=== PATIENT | male | born 1985 | race Caucasian/White ===

== ENCOUNTER 2017-11-09 00:05 | Emergency (ER) | payer MEDICAID, OTHER ==
--- NOTE | 2017-11-09 00:49 | XRAY Report ---
EXAM: LEFT WRIST RADIOGRAPHY EXAM DATE: 11/09/2017 12:37 AM. CLINICAL HISTORY: Left wrist injury. COMPARISON: None. TECHNIQUE: 3 views. FINDINGS: Bones: Subacute appearing healing nondisplaced fracture through the base of the left radial styloid. No acute fracture seen in the left breast. Joints: Normal. No subluxations. Soft Tissues: Normal. No soft tissue swelling. IMPRESSION: Subacute appearing healing nondisplaced intra-articular fracture through the base of the left radial styloid. No acute fracture seen in the left wrist. [facility] Referring Provider Line: [phone] SITE ID: [id number]
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
[2017-11-09 01:03] VITALS: BP 164/104
== END 2017-11-09 01:07 | disposition home or self-care (01) ==
LOC: ED 00:05
DX: S69.92XA Unspecified injury of left wrist, hand and finger(s), initial encounter (principal); Y35.811A Legal intervention involving manhandling, law enforcement official injured, initial encounter; Y93.02 Activity, running; F17.200 Nicotine dependence, unspecified, uncomplicated
CPT/HCPCS: 99282; 99283

== ENCOUNTER 2020-02-29 15:50 | Outpatient (CLI) | payer MEDICAID | END 2020-02-29 15:51 | disposition home or self-care (01) | LOC: EMS 15:50 | PROVIDERS: ATTEND Surgery | DX: Z53.9 Procedure and treatment not carried out, unspecified reason (principal) ==

== ENCOUNTER 2020-02-29 16:04 | Outpatient (CLI) | payer MEDICAID | END 2020-02-29 16:05 | disposition critical access hospital (66) | LOC: EMS 16:04 | PROVIDERS: ATTEND Surgery | DX: M79.602 Pain in left arm (principal); M79.605 Pain in left leg | CPT/HCPCS: A0425; A0429; A0999 ==

== ENCOUNTER 2020-02-29 16:44 | Emergency (ER) | payer MEDICAID ==
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
[2020-02-29] MEDS ORDERED: IOVERSOL 320 100 ML VIAL IVP ONE ×2 (17:06→19:12)
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
[2020-02-29 17:42] LABS: BASOPHILS % (AUTO) 0.3 %; EOSINOPHILS # (AUTO) 0.1 10^3/uL (0.0-0.7); EOSINOPHILS % (AUTO) 0.6 %; HGB - HEMOGLOBIN 14.6 g/dL (14.0-18.0); LYMPHOCYTES # (AUTO) 1.9 10^3/uL (1.5-3.5); LYMPHOCYTES % (AUTO) 16.9 %; MEAN CORPUSCULAR HEMOGLOBIN 29.9 pg (27.0-31.0); MEAN CORPUSCULAR VOLUME 90.6 fL (80.0-94.0); MEAN PLATELET VOLUME 9.4 fL (7.4-11.4); MONOCYTES % (AUTO) 8.6 %; NEUTROPHILS # (AUTO) 8.1 10^3/uL (1.5-6.6); NEUTROPHILS % (AUTO) 73.2 %; PLT - PLATELET COUNT 259 10^3/uL (130-450); RED BLOOD COUNT 4.88 10^6/uL (4.70-6.10); RED CELL DISTRIBUTION WIDTH 13.2 % (12.0-15.0); WHITE BLOOD COUNT 11.1 x10^3/uL (4.8-10.8)
[2020-02-29 18:09] LABS: ALBUMIN 4.1 g/dL (3.2-5.5); ALBUMIN/GLOBULIN RATIO 1.2 (1.0-2.2); ALKALINE PHOSPHATASE 81 IU/L (42-121); ALT ALANINE AMINOTRANSFERASE 39 IU/L (10-60); AST ASPARTATE AMINOTRANSFERASE 30 IU/L (10-42); BILIRUBIN,TOTAL 0.7 mg/dL (0.2-1.0); BUN - BLOOD UREA NITROGEN 16 mg/dL (6-20); CALCIUM 9.1 mg/dL (8.5-10.3); CARBON DIOXIDE - CO2 26 mmol/L (21-32); CHLORIDE 103 mmol/L (101-111); GLUCOSE 86 mg/dL (70-100); LIPASE 23 U/L (22-51); SODIUM 137 mmol/L (135-145); TOTAL PROTEIN 7.6 g/dL (6.7-8.2)
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
[2020-02-29 18:54] VITALS: BP 140/88
== END 2020-02-29 18:56 | disposition home or self-care (01) ==
LOC: EDUNIT# → ED 16:44
DX: S09.90XA Unspecified injury of head, initial encounter (principal); S16.1XXA Strain of muscle, fascia and tendon at neck level, initial encounter; S40.022A Contusion of left upper arm, initial encounter; S80.12XA Contusion of left lower leg, initial encounter; S80.812A Abrasion, left lower leg, initial encounter; V48.5XXA Car driver injured in noncollision transport accident in traffic accident, initial encounter; Y92.410 Unspecified street and highway as the place of occurrence of the external cause; F17.200 Nicotine dependence, unspecified, uncomplicated
CPT/HCPCS: 36415; 70450; 71260; 72125; 73060; 73590; 74177; 80053; 80320; 83690; 85025; 99283; 99284; Q9967

== ENCOUNTER 2021-05-12 14:50 | Outpatient (CLI) | payer MEDICAID | END 2021-05-12 14:51 | disposition critical access hospital (66) | LOC: EMS 14:50 | DX: K08.89 Other specified disorders of teeth and supporting structures (principal) | CPT/HCPCS: A0425; A0429 ==

== ENCOUNTER 2021-05-12 15:10 | Emergency (ER) | payer MEDICAID ==
[2021-05-12] MEDS ORDERED: AMOXICILLIN 250 MG CAPSULE PO STA (16:55)
--- NOTE | 2021-05-12 17:00 | ED Physician Documentation ---
PD HPI HEENT - Stated complaint Stated Complaint: TOOTH PX - Chief complaint Chief Complaint: Heent - History obtained from History obtained from: Patient - Additional information Additional information: Patient comes emergency department chief complaint of dental pain that started a couple of days ago. Patient states that one of his teeth broke off in the right maxillary region and that has had pain since. He has noticed some swelling of the gums but not of the face. The patient has a longstanding history of poor dentition, but is not currently seeing a dentist. No other complaints at this t geovany. Review of Systems Ten Systems: 10 systems reviewed and negative Constitutional: reports: Reviewed and negative Eyes: reports: Reviewed and negative Ears: reports: Reviewed and negative Nose: reports: Reviewed and negative Throat: reports: Dental pain / toothache Cardiac: reports: Reviewed and negative Respiratory: reports: Reviewed and negative GI: reports: Reviewed and negative : reports: Reviewed and negative Skin: reports: Reviewed and negative Musculoskeletal: reports: Reviewed and negative Neurologic: reports: Reviewed and negative Psychiatric: reports: Reviewed and negative Endocrine: reports: Reviewed and negative Immunocompromised: reports: Reviewed and negative PD PAST MEDICAL HISTORY - Past Medical History Cardiovascular: None Respiratory: None Neuro: None Endocrine/Autoimmune: None GI: None : None HEENT: None Psych: None Musculoskeletal: None Derm: None - Past Surgical History Past Surgical History: Yes - Present Medications Home Medications: Ambulatory Orders Medication Instructions Recorded Confirmed Amoxicillin 500 mg PO TID 7 Days #21 cap 05/12/21 - Allergies Allergies/Adverse Reactions: Allergies Allergy/AdvReac Type Severity Reaction Status Date / Time No Known Drug Allergies Allergy Verified 05/12/21 15:21 - Social History Does the pt smoke?: Yes Smoking Status: Current every day smoker Does the pt drink ETOH?: No Does the pt have substance abuse?: No - Immunizations Immunizations are current?: No PD ED PE NORMAL - Vitals Vital signs reviewed: Yes - General General: Alert and oriented X 3, No acute distress, Well developed/nourished - HEENT HEENT: Atraumatic, PERRL, EOMI, Moist mucous membranes, Other (Patient is very poor dentition. Multiple severely decayed, fractured, and missing teeth are noted. No facial swelling. Patient has Mild right maxillary gingival edema and fluctuance) - Neck Neck: Supple, no meningeal sign - Respiratory Respiratory: No respiratory distress - Derm Derm: Normal color, Warm and dry, No rash - Extremities Extremities: No deformity - Neuro Neuro: Alert and oriented X 3 - Psych Psych: Normal mood, Normal affect Results - Vitals Vitals: Vital Signs - 24 hr 05/12/21 15:21 Temperature 36.2 C L Heart Rate 91 Respiratory 18 Rate Blood Pressure 148/84 H O2 Saturation 98 Oxygen O2 Source Room air PD MEDICAL DECISION MAKING - ED course Complexity details: considered differential, d/w patient ED course: The patient was started on antibiotics for his dental infection. I have strongly advised him to follow-up with a dentist for definitive care of his dental issues. We have discussed the need to take his antibiotics faithfully every day, as directed, until the course is complete. We have discussed the usual indications for return. Departure - Departure Disposition: 01 Home, Self Care Clinical Impression: Dental infection Condition: Stable Instructions: ED Tooth Pain Follow-Up: [facility] [Physician No Access] - [facility] [Physician No Access] - Prescriptions: Amoxicillin 500 mg PO TID 7 Days #21 cap
[2021-05-12 17:14] VITALS: BP 135/83
== END 2021-05-12 17:15 | disposition home or self-care (01) ==
LOC: EDUNIT# → EDBD → ED 15:10
DX: K04.7 Periapical abscess without sinus (principal); S02.5XXA Fracture of tooth (traumatic), initial encounter for closed fracture; X58.XXXA Exposure to other specified factors, initial encounter; K02.9 Dental caries, unspecified; F17.200 Nicotine dependence, unspecified, uncomplicated
CPT/HCPCS: 99283; A9270

== ENCOUNTER 2022-12-13 13:19 | Outpatient (CLI) | payer MEDICAID | END 2022-12-13 23:59 | disposition E | LOC: EMS 13:19 | DX: I46.9 Cardiac arrest, cause unspecified (principal) | CPT/HCPCS: A0425; A0429 ==